=== PATIENT | female | born 1990 | race African-American/Black ===

== ENCOUNTER 2017-03-09 16:55 | Emergency (ER) | payer BC, OTHER ==
[~2017-03-09] VITALS: Ht 157.5 cm; Wt 84.5 kg
[~2017-03-09 16:55] MED LIST: LEVO150T11 PO; PREN1TAB80 PO
[2017-03-09] MEDS ORDERED: ACETAMINOPHEN/CODEINE 300-30 MG TABLET PO ONE (19:00)
[2017-03-09 19:03] VITALS: BP 121/68
== END 2017-03-09 19:47 | disposition home or self-care (01) ==
LOC: EMS 16:59
DX: S90.32XA Contusion of left foot, initial encounter (principal); E03.9 Hypothyroidism, unspecified; W18.39XA Other fall on same level, initial encounter; Y93.89 Activity, other specified; Y92.89 Other specified places as the place of occurrence of the external cause; Y99.8 Other external cause status
CPT/HCPCS: 99284